=== PATIENT | female | born 1950 | race Two or more races ===

== ENCOUNTER 2016-03-31 13:00 | Emergency (ER) | payer OTHER ==
[~2016-03-31] VITALS: Ht 152.4 cm; Wt 49.9 kg
[2016-03-31] MEDS ORDERED: METFORMIN HCL1000 M1 ORAL (13:29)
[2016-03-31 13:58] VITALS: BP 133/71
[2016-03-31 14:03] LABS: APPEARANCE,URINE SLIGHTLY CLOUDY; KETONES,URINE 1+ (NEGATIVE); LEUKOCYTE ESTERASE ,URINE 1+ (NEGATIVE); NITRITE,URINE NEGATIVE (NEGATIVE); PH,URINE 5 (4.5-8.0); PROTEIN,URINE 2+ (NEGATIVE); UROBILINOGEN,URINE 1 MG/DL (0.0-1.0)
[2016-03-31 14:05] LABS: MEAN CORPUSCULAR HEMOGLOBIN 29.2 PG (27.0-31.0); MEAN CORPUSCULAR HGB CONC 32.1 G/DL (32.0-36.0); MEAN CORPUSCULAR VOLUME 91 FL (80-99); MEAN PLATELET VOLUME 6.4 FL (6.5-10.1); PLATELET COUNT 329 K/UL (150-450); RED BLOOD COUNT 4.85 M/UL (4.20-5.40); WHITE BLOOD COUNT 18.7 K/UL (4.8-10.8)
[2016-03-31 14:17] LABS: BACTERIA,URINE FEW /HPF; CALCIUM OXALATE CRYSTALS,UR MODERATE /LPF; HYALINE CASTS, URINE 0-2 /LPF; ICTOTEST NEGATIVE; RBC,URINE 0-2 /HPF (0 - 2); SQUAMOUS EPITHELIAL CELL,UR FEW /LPF (NONE/OCC); WBC,URINE 0-2 /HPF (0 - 2)
[2016-03-31 14:27] LABS: ALANINE AMINOTRANSFERASE 15 U/L (3-33); ALBUMIN/GLOBULIN RATIO 1.8 (1.0-2.7); ANION GAP 14 (5-15); ASPARTATE AMINO TRANSFERASE 16 U/L (5-40); CALCIUM 9.6 mg/dL (8.6-10.2); CARBON DIOXIDE 27 mEQ/L (20-30); CHLORIDE 97 mEQ/L (98-107); CREATININE 0.6 mg/dL (0.5-0.9); GLOMERULAR FILTRATION RATE > 60 mL/min (>60); HEMOLYSIS 2; LIPASE 35 U/L (< 60); POTASSIUM 4.3 mEQ/L (3.4-4.9); SODIUM 138 mEQ/L (135-145); TOTAL PROTEIN 7.1 g/dL (6.6-8.7)
[2016-03-31 14:35] LABS: BAND NEUTROPHILS % (MANUAL) 7 % (0-8); BASOPHILS % (MANUAL) 0 % (0-2); EOSINOPHILS % (MANUAL) 0 % (0-3); LYMPHOCYTES % (MANUAL) 10 % (20-45); NEUTROPHILS % (MANUAL) 80 % (45-75); PLATELET ESTIMATE ADEQUATE; PLATELET MORPHOLOGY NORMAL; TOTAL CELLS COUNTED 100
--- NOTE | 2016-03-31 16:02 | Diagnostic Imaging Report ---
Indication: Abdominal pain Technique: Continuous helical transaxial imaging of the abdomen and pelvis was obtained from the lung bases to the pubic symphysis during intravenous contrast administration. Coronal 2-D reformats were also obtained. Study obtained in a Siemens sensation [address] Total Dose length Product (DLP): [address] Dose Index Volume (CTDIvol): 15 mGy Comparison: None Findings: Mild basilar atelectasis demonstrated. The liver is slightly hypodense. Gallbladder, pancreas, spleen and adrenal glands are unremarkable. There is a cyst in the lower pole the right kidney. There is mild thickening of the wall of the descending colon. A fairly long segment of involvement noted and findings may be due to colitis. Please correlate clinically. Aorta is calcified. There is no pneumatosis, abscess or evidence of bowel obstruction. No free air or free fluid identified. Appendix is normal. Liquefied stool also demonstrated in the colon. Small uterine calcifications are present. Bladder is unremarkable. Impression: Suspected colitis, mild in degree involving the descending colon. Liquefied stool may be indicative of diarrhea. Please correlate clinically. Mild fatty liver Mild atherosclerotic vascular disease Uterine calcification probably a fibroid. Impression: The CT scanner at [facility] is accredited by the [employer] and the scans are performed using protocols designed to limit radiation exposure to as low as reasonably achievable to attain images of sufficient resolution adequate for diagnostic evaluation.
[2016-03-31 16:04] VITALS: BP 141/78
[2016-03-31] MEDS ORDERED: Levofloxacin 500mg tab ORAL ONE (16:15)
[2016-03-31] MEDS ORDERED: metroNIDAZOLE 500mg tab ORAL ONE (16:15)
[2016-03-31] MEDS ORDERED: LEVAQUIN750 MG ORAL (16:16)
[2016-03-31] MEDS ORDERED: FLAGYL500 MG ORAL (16:16)
[2016-03-31] MEDS ORDERED: BENTYL10 MG ORAL (16:16)
--- NOTE | 2016-03-31 16:18 | Emergency Room Report ---
History of Present Illness General Chief Complaint: Abdominal Pain Present Illness Allergies: Coded Allergies: No Known Allergies (Unverified , 03/31/16) Nursing Documentation-PMH Past Medical History Deferred: Patient Unconscious Hx Diabetes: Yes Physical Exam Vital Signs Date Time Temp Pulse Resp B/P Pulse Ox O2 Delivery O2 Flow Rate FiO2 03/31/16 13:24 98.4 71 16 134/76 98 Room Air Medical Decision Making Diagnostic Impression: Primary Impression: Colitis presumed infectious ER Course Received signout from Dr Leal at 230pm to followup CTAP which shows descending colitis, no abscess. Patient tolerating PO, denies nausea/vomiting. Tolerating PO Abx in ED; wants to go home Rx Flagyl and Levo for 1 week PMD followup DC home Last Vital Signs Date Time Temp Pulse Resp B/P Pulse Ox O2 Delivery O2 Flow Rate FiO2 03/31/16 16:04 79 17 141/78 98 Room Air 03/31/16 13:58 97.0 Status: improved Disposition: HOME, SELF-CARE Condition: Improved Scripts Dicyclomine Hcl* (BENTYL*) 10 Mg Capsule 10 MG ORAL FOUR TIMES A DAY for 7 Days, #30 CAP Prov: CHARLES GRANGER M.D. 03/31/16 Levofloxacin* (LEVAQUIN*) 750 Mg Tablet 750 MG ORAL DAILY for 7 Days, #7 TAB Prov: CHARLES GRANGER M.D. 03/31/16 Metronidazole* (FLAGYL*) 500 Mg Tablet 500 MG ORAL THREE TIMES A DAY for 7 Days, #21 TAB 0 Refills Prov: HCARLES GRANGER M.D. 03/31/16 Patient Instructions: Colitis Additional Instructions: - Take ALL antibiotics - Flagyl and Levo - until finished - You can take Bentyl as needed for diarrhea - Drink LOTS of fluids - Return to ER for worsening pain, vomiting, fever/chills or if you cant take the antibiotics - Follow up with your doctor in 1 week CHARLES GRANGER M.D. Mar 31, 2016 16:18
[2016-03-31 16:24] VITALS: BP 150/46
--- NOTE | 2016-04-01 15:31 | Emergency Room Report ---
History of Present Illness General Chief Complaint: Abdominal Pain Source: Patient Present Illness HPI 65-year-old female presents to ED complaining of abdominal pain with vomiting and diarrhea. States the symptoms have persisted on and off for almost one month now. Patient was seen by her PMD approximately 2 weeks ago and was prescribed Bactrim. Patient did not fill the prescription for she started to feel better. States the symptoms returned afterwards. Patient never filled the prescription. Notes multiple episodes of watery stools. Notes chills and body aches. Denies any sick contacts or recent travel. Denies any recent antibiotic use. Denies any other associated symptoms Allergies: Coded Allergies: No Known Allergies (Unverified , 03/31/16) Patient History Past Medical History: DM Past Surgical History: none Pertinent Family History: none Social History: Denies: alcohol use, drug use, smoking Now: No Immunizations: UTD Reviewed Nursing Documentation: PMH: Agreed, PSxH: Agreed Nursing Documentation-PMH Past Medical History Deferred: Patient Unconscious Hx Diabetes: Yes Review of Systems All Other Systems: negative except mentioned in HPI Physical Exam Vital Signs Date Time Temp Pulse Resp B/P Pulse Ox O2 Delivery O2 Flow Rate FiO2 03/31/16 13:24 98.4 71 16 134/76 98 Room Air Sp02 EP Interpretation: reviewed, normal General Appearance: no apparent distress, alert, GCS 15, non-toxic Head: normocephalic, atraumatic Eyes: bilateral eye PERRL, bilateral eye normal inspection ENT: hearing grossly normal, normal pharynx, no angioedema, normal voice Neck: full range of motion, supple/symm/no masses Respiratory: chest non-tender, lungs clear, normal breath sounds, speaking full sentences Cardiovascular #1: regular rate, rhythm, no edema Cardiovascular #2: 2+ carotid (R), 2+ carotid (L), 2+ radial (R), 2+ radial (L) , 2+ dorsalis pedis (R), 2+ dorsalis pedis (L) Gastrointestinal: normal bowel sounds, non tender, soft, non-distended, no guarding, no rebound Rectal: deferred Genitourinary: normal inspection, no CVA tenderness Musculoskeletal: back normal, gait/station normal, normal range of motion, non- tender Neurologic: alert, oriented x3, responsive, motor strength/tone normal, sensory intact, speech normal Psychiatric: judgement/insight normal, memory normal, mood/affect normal, no suicidal/homicidal ideation Reflexes: 3+ bicep (R), 3+ bicep (L), 3+ tricep (R), 3+ tricep (L), 3+ knee (R) , 3+ knee (L) Skin: normal color, no rash, warm/dry, well hydrated Lymphatic: no adenopathy Medical Decision Making Diagnostic Impression: Primary Impression: Colitis presumed infectious Labs Test 03/31/16 13:43 03/31/16 13:50 Urine Color Yellow Urine Appearance Slightly cloudy Urine pH 5 (4.5-8.0) Urine Specific [place] 1.025 (1.005-1.035) Urine Protein 2+ (NEGATIVE) Urine Glucose (UA) Negative (NEGATIVE) Urine Ketones 1+ (NEGATIVE) Urine Occult Blood 1+ (NEGATIVE) Urine Nitrite Negative (NEGATIVE) Urine Bilirubin 1+ (NEGATIVE) Urine Ictotest Negative Urine Urobilinogen 1 MG/DL (0.0-1.0) Urine Leukocyte Esterase 1+ (NEGATIVE) Urine RBC 0-2 /HPF (0 - 2) Urine WBC 0-2 /HPF (0 - 2) Urine Squamous Epithelial Cells Few /LPF (NONE/OCC) Urine Calcium Oxalate Crystals Moderate /LPF (NONE) Urine Bacteria Few /HPF (NONE) Urine Hyaline Casts 0-2 /LPF (NONE) White Blood Count 18.7 K/UL (4.8-10.8) Red Blood Count 4.85 M/UL (4.20-5.40) Hemoglobin 14.2 G/DL (12.0-16.0) Hematocrit 44.1 % (37.0-47.0) Mean Corpuscular Volume 91 FL (80-99) Mean Corpuscular Hemoglobin 29.2 PG (27.0-31.0) Mean Corpuscular Hemoglobin Concent 32.1 G/DL (32.0-36.0) Red Cell Distribution Width 12.0 % (11.6-14.8) Platelet Count 329 K/UL (150-450) Mean Platelet Volume 6.4 FL (6.5-10.1) Neutrophils (%) (Auto) % (45.0-75.0) Lymphocytes (%) (Auto) % (20.0-45.0) Monocytes (%) (Auto) % (1.0-10.0) Eosinophils (%) (Auto) % (0.0-3.0) Basophils (%) (Auto) % (0.0-2.0) Differential Total Cells Counted 100 Neutrophils % (Manual) 80 % (45-75) Lymphocytes % (Manual) 10 % (20-45) Monocytes % (Manual) 3 % (1-10) Eosinophils % (Manual) 0 % (0-3) Basophils % (Manual) 0 % (0-2) Band Neutrophils 7 % (0-8) Platelet Estimate Adequate Platelet Morphology Normal Red Blood Cell Morphology Normal Sodium Level 138 mEQ/L (135-145) Potassium Level 4.3 mEQ/L (3.4-4.9) Chloride Level 97 mEQ/L (98-107) Carbon Dioxide Level 27 mEQ/L (20-30) Anion Gap 14 (5-15) Blood Urea Nitrogen 16 mg/dL (7-23) Creatinine 0.6 mg/dL (0.5-0.9) Estimat Glomerular Filtration Rate > 60 mL/min (>60) Glucose Level 170 mg/dL (74-106) Calcium Level 9.6 mg/dL (8.6-10.2) Total Bilirubin 0.7 mg/dL (0.0-1.2) Aspartate Amino Transf (AST/SGOT) 16 U/L (5-40) Alanine Aminotransferase (ALT/SGPT) 15 U/L (3-33) Alkaline Phosphatase 82 U/L (35-104) Total Protein 7.1 g/dL (6.6-8.7) Albumin 4.6 g/dL (3.5-5.2) Globulin 2.5 g/dL Albumin/Globulin Ratio 1.8 (1.0-2.7) Lipase 35 U/L (< 60) Last Vital Signs Date Time Temp Pulse Resp B/P Pulse Ox O2 Delivery O2 Flow Rate FiO2 03/31/16 16:24 92 19 150/46 99 Room Air 03/31/16 13:58 97.0 Status: improved Disposition: HOME, SELF-CARE Condition: Improved Signed Out To: DR Granger Scripts Dicyclomine Hcl* (BENTYL*) 10 Mg Capsule 10 MG ORAL FOUR TIMES A DAY for 7 Days, #30 CAP Prov: CHARLES GRANGER M.D. 03/31/16 Levofloxacin* (LEVAQUIN*) 750 Mg Tablet 750 MG ORAL DAILY for 7 Days, #7 TAB Prov: CHARLES GRANGER M.D. 03/31/16 Metronidazole* (FLAGYL*) 500 Mg Tablet 500 MG ORAL THREE TIMES A DAY for 7 Days, #21 TAB 0 Refills Prov: CHARLES GRANGER M.D. 03/31/16 Patient Instructions: Colitis Additional Instructions: - Take ALL antibiotics - Flagyl and Levo - until finished - You can take Bentyl as needed for diarrhea - Drink LOTS of fluids - Return to ER for worsening pain, vomiting, fever/chills or if you cant take the antibiotics - Follow up with your doctor in 1 week PENNY REYES M.D. Apr 01, 2016 15:31
== END 2016-03-31 16:24 | disposition home or self-care (01) ==
LOC: EMR 15:04
DX: K52.9 Noninfective gastroenteritis and colitis, unspecified (principal); E11.9 Type 2 diabetes mellitus without complications
CPT/HCPCS: 36415; 74177; 80053; 81003; 82962; 83690; 85007; 85025; 96360; 99284; Q9967